=== PATIENT | male | born 1960 | race Two or more races ===

== ENCOUNTER 2023-06-16 05:35 | Day surgery (SDC) | payer OTHER ==
[2023-06-16] MEDS ORDERED: TRAM1TAB98 PO (10:31)
[2023-06-16] MEDS ORDERED: NEURONTIN300 MG PO (10:32)
== END 2023-06-16 13:10 | disposition home or self-care (01) ==
LOC: CIR.AMB 05:35
PROVIDERS: ATTEND Surgery
DX: K62.0 Anal polyp (principal); K62.1 Rectal polyp; K62.5 Hemorrhage of anus and rectum; Z20.822 Contact with and (suspected) exposure to COVID-19; I10 Essential (primary) hypertension; E03.9 Hypothyroidism, unspecified